=== PATIENT | female | born 1950 | race Caucasian/White ===

== ENCOUNTER → 2017-05-07 | Outpatient (CLI) | payer MEDICARE, OTHER ==
[~2017-05-07] MED LIST: ASCO-262 PO; CALC-80 PO; CYCL1DRO OP; DICL1TAB PO; DOXY50CA2 PO; FLAX340P PO; FLUO40CA PO; GINK60CA13 PO; IBAN150T5 PO; LVT.112T PO; MULT-608 PO; OMEG1CAP40 PO; OMEP20TA2 PO; ROSU10TA12 PO; VITA1CAP55 PO
--- NOTE | 2017-05-07 12:58 | Diagnostic Imaging Report ---
INDICATION: Cough and back pain. TIME OF EXAM: 12:56 PM No prior studies are available for comparison. FINDINGS: The heart size is normal. The pulmonary vascularity is unremarkable. The lungs are clear. No infiltrate, effusion or pneumothorax is detected. IMPRESSION: No acute cardiopulmonary process is detected. Dictated by: Dictated on workstation # [id number]
== END ==
LOC: RAD 12:08
PROVIDERS: ATTEND Nurse Practitioner Family
DX: J40 Bronchitis, not specified as acute or chronic (principal); M54.9 Dorsalgia, unspecified
CPT/HCPCS: 71046

== ENCOUNTER → 2017-05-09 | Outpatient (CLI) | payer MEDICARE, OTHER ==
[~2017-05-09] MED LIST changes: +RT-ALBUTEROL SULF 2.5 MG/3 ML PRE-MIX VIAL INH ONE
== END ==
LOC: RT 12:43
PROVIDERS: ATTEND Nurse Practitioner Family
DX: J30.9 Allergic rhinitis, unspecified (principal); G47.10 Hypersomnia, unspecified; G47.33 Obstructive sleep apnea (adult) (pediatric); R06.83 Snoring
CPT/HCPCS: 94060; 94726; 94729

== ENCOUNTER 2019-02-23 05:34 | Outpatient (CLI) | payer MEDICARE, OTHER ==
[~2019-02-23] VITALS: Ht 157.5 cm; Wt 68.2 kg
[~2019-02-23 05:34] MED LIST changes: +ASCO100099 PO; +BACI1CAP6 PO; +BUDE180A IH; +CALC-904 PO; +CHOL400C9 PO; +CINN500C2 PO; +FEXO-46 PO; +FLUO40CA12 PO; +FLUT9.9S NS; +GLUC-116 PO; +LEVO112T55 PO; +MELO15TA39 PO; +METF-397 PO; +MONT10TA24 PO; +MULT1TAB69 PO; +OMEP40CA27 PO; +POTA99TA21 PO; +RT-ALBUINH IH; -RT-ALBUTEROL SULF 2.5 MG/3 ML PRE-MIX VIAL INH ONE; +TURM538C PO; +UBID1CAP53 PO
[2019-02-23] MEDS ORDERED: CELE100C PO (10:20)
[2019-02-23] MEDS ORDERED: CHOL500044 PO (10:20)
[2019-02-23] MEDS ORDERED: CHRO400T10 PO (10:20)
== END 2019-02-23 11:30 | disposition home or self-care (01) ==
LOC: PREOP 05:34
PROVIDERS: ATTEND Specialist
DX: Z01.818 Encounter for other preprocedural examination (principal)

== ENCOUNTER 2019-02-26 06:33 | Day surgery (SDC) | payer MEDICARE, OTHER ==
[~2019-02-26] VITALS: Ht 157 cm; Wt 68.2 kg
[~2019-02-26 06:33] MED LIST changes: +CELE100C PO; +CHOL500044 PO; +CHRO400T10 PO
[2019-02-26 06:35] VITALS: BP 125/70
[2019-02-26] MEDS ORDERED: TETRACAINE 0.5% OPHTH SOLN 4 ML BTL (SINGLE DOSE ONLY) OU PRN (06:45)
[2019-02-26] MEDS ORDERED: TROPICAMIDE 1% OPH SOLN (MYDRIACYL) 15 ML BTL OU PRN (06:45)
[2019-02-26] MEDS ORDERED: PHENYLEPHRINE 10% OPHTH (NEO-SYN) 5 ML BTL OU PRN (06:45)
[2019-02-26 07:15] VITALS: BP 125/70
[2019-02-26 07:24] VITALS: BP 125/70
--- NOTE | 2019-02-26 08:17 | Ophthalmology Operative Report ---
YAG Capsulotomy PREOPERATIVE DIAGNOSIS: Secondary Cataract Right Eye POSTOPERATIVE DIAGNOSIS: Secondary Cataract Right Eye PROCEDURE: YAG Capsulotomy, right eye SURGEON: Arian Vela ANESTHESIA: Topical anesthesia COMPLICATIONS: None ESTIMATED BLOOD LOSS: Minimal DESCRIPTION OF PROCEDURE: After proper informed consent was obtained, the patient's, a 68 female, right eye received one drop of Tropicamide and one drop of Tetracaine. The patient was then placed at the YAG laser and using a power of [ 3.0] millijoules and [15 ] bursts were used to fashion a central capsulotomy. The patient tolerated the procedure well without complications. ARIAN VELA MD Feb 26, 2019 08:17
--- NOTE | 2019-02-26 08:17 | Ophthalmologist Pre-Op Note ---
Pre-Operative Progress Note H&P Reviewed The H&P was reviewed, patient examined and no changes noted. Date H&P Reviewed: Feb 26, 2019 Time H&P Reviewed: 07:24 Pre-Op Dx Secondary Cataract, Right Eye EZE VELA MD Feb 26, 2019 08:17
== END 2019-02-26 07:15 | disposition home or self-care (01) ==
LOC: SDC 06:33
PROVIDERS: ATTEND Specialist
DX: H26.491 Other secondary cataract, right eye (principal); R73.03 Prediabetes; J45.909 Unspecified asthma, uncomplicated; M19.90 Unspecified osteoarthritis, unspecified site; Z79.899 Other long term (current) drug therapy; Z80.7 Family history of other malignant neoplasms of lymphoid, hematopoietic and related tissues

== ENCOUNTER 2019-10-05 13:06 | Outpatient (RCR) | payer MEDICARE, OTHER ==
[~2019-10-05 13:06] MED LIST changes: -MONT10TA24 PO; +MONT10TA26 PO; +MULT-567 PO; -MULT1TAB69 PO
== END 2019-10-11 | disposition home or self-care (01) ==
PROVIDERS: ATTEND Orthopaedic Surgery
DX: Z47.1 Aftercare following joint replacement surgery (principal); M25.812 Other specified joint disorders, left shoulder; K21.9 Gastro-esophageal reflux disease without esophagitis; M81.0 Age-related osteoporosis without current pathological fracture; J45.909 Unspecified asthma, uncomplicated; E11.9 Type 2 diabetes mellitus without complications; Z87.81 Personal history of (healed) traumatic fracture; Z96.612 Presence of left artificial shoulder joint

== ENCOUNTER 2020-06-12 05:39 | Outpatient (CLI) | payer MEDICARE ==
[~2020-06-12] VITALS: Ht 160 cm; Wt 68.2 kg
[~2020-06-12 05:39] MED LIST changes: -MONT10TA26 PO; +MONT10TA32 PO
[2020-06-12] MEDS ORDERED: BUDE90AE2 IH (11:12)
[2020-06-12] MEDS ORDERED: CHOL500044 PO (11:12)
== END 2020-06-12 11:15 | disposition home or self-care (01) ==
LOC: PREOP 05:39
PROVIDERS: ATTEND Specialist
DX: Z01.818 Encounter for other preprocedural examination (principal)

== ENCOUNTER 2020-06-16 06:56 | Day surgery (SDC) | payer MEDICARE, OTHER ==
[~2020-06-16] VITALS: Ht 160 cm; Wt 68.2 kg
[~2020-06-16 06:56] MED LIST changes: +BUDE90AE2 IH
[2020-06-16] MEDS: TETRACAINE 0.5% OPHTH SOLN 4 ML BTL (SINGLE DOSE ONLY) OU PRN ×4 (07:12→07:28)
[2020-06-16] MEDS ORDERED: MOXIFLOXACIN OPHTH SOLN 5 MG/ML 0.3 ML SYRINGE OP ONE (07:15)
[2020-06-16] MEDS ORDERED: POVIDONE (BETADINE) OPHTH SOLN 5% 30 ML OP ONE (07:15)
[2020-06-16] MEDS ORDERED: LIDOCAINE PF 1% 2 ML VIAL IR PRN (07:15)
[2020-06-16] MEDS ORDERED: TIMOLOL MALEATE 0.5% 5 ML (TIMOPTIC) BTL OU PRN (07:15)
[2020-06-16] MEDS: PHENYLEPHRINE 10% OPHTH (NEO-SYN) 5 ML BTL OU SCH ×3 (07:18→07:29)
[2020-06-16] MEDS: TROPICAMIDE 1% OPH SOLN (MYDRIACYL) 15 ML BTL OP SCH ×3 (07:18→07:29)
[2020-06-16 07:20] VITALS: BP 133/72
[2020-06-16] MEDS ORDERED: MIDAZOLAM 2 MG/2 ML (VERSED) VIAL ONE ×2 (07:42→08:07)
--- NOTE | 2020-06-16 08:04 | Ophthalmologist Pre-Op Note ---
Pre-Operative Progress Note H&P Reviewed The H&P was reviewed, patient examined and no changes noted. Date H&P Reviewed: June 16, 2020 Time H&P Reviewed: 08:04 Pre-Op Dx Cataract, Left Eye EZE VELA MD June 16, 2020 08:04
[2020-06-16] MEDS ORDERED: VASOPRESSIN INJECTION 20 UNIT/ML VIAL ONE ×2 (08:11→08:24)
--- NOTE | 2020-06-16 08:28 | Ophthalmology Operative Report ---
Cataract removal/placement IOL PREOPERATIVE DIAGNOSIS: Cataract Left Eye POSTOPERATIVE DIAGNOSIS: Cataract Left Eye PROCEDURE: Cataract removal and placement of posterior chamber implant, left eye SURGEON: Arian Vela ANESTHESIA: Topical with sedation COMPLICATIONS: None ESTIMATED BLOOD LOSS: Minimal DESCRIPTION OF PROCEDURE: After proper informed consent was obtained, the patient, a 69 female, was taken to the Operating Room and the left eye was anesthetized with tetracaine. The left eye was then prepped and draped in the usual manner. A wire lid speculum was placed. A paracentesis was made at the left hand position. Preservative free lidocaine was injected into the anterior chamber followed by viscoelastic. A clear corneal incision was made in the temporal position. A capsulorrhexis was preformed and the central nuclear and cortical material were removed. The posterior capsule was polished and an Jared 21.5 [id number] was placed into the capsular bag. The residual viscoelastic was aspirated and balanced saline solution was injected into the anterior chamber. Moxifloxacin was injected into the anterior chamber. The wound was checked and found to be water tight. The patient tolerated the procedure well without complications. ARIAN VELA MD June 16, 2020 08:27
[2020-06-16] MEDS ORDERED: acetaZOLAMIDE ER 500 MG CAP (DIAMOX SEQUELS) PO ONE (08:30)
[2020-06-16 08:39] VITALS: BP 124/69
--- NOTE | 2020-06-16 10:23 | Anesthesia-General Post-Op ---
MAC Patient Condition Mental Status/LOC: Same as Preop Cardiovascular: Satisfactory Nausea/Vomiting: Absent Respiratory: Satisfactory Pain: Controlled Complications: Absent Post Op Complications Complications None Follow Up Care/Instructions Patient Instructions None needed. Anesthesiology Discharge Order Discharge Order Patient is doing well, no complaints, stable vital signs, no apparent adverse anesthesia problems. No complications reported per nursing. CHRISTINE MORLEY CRNA June 16, 2020 10:23
== END 2020-06-16 08:35 | disposition home or self-care (01) ==
LOC: SDC 06:56
PROVIDERS: ATTEND Specialist
DX: H25.12 Age-related nuclear cataract, left eye (principal); J45.909 Unspecified asthma, uncomplicated; K21.9 Gastro-esophageal reflux disease without esophagitis; R73.03 Prediabetes; Z79.51 Long term (current) use of inhaled steroids; Z79.84 Long term (current) use of oral hypoglycemic drugs; Z79.899 Other long term (current) drug therapy; Z80.7 Family history of other malignant neoplasms of lymphoid, hematopoietic and related tissues; Z83.3 Family history of diabetes mellitus; Z96.653 Presence of artificial knee joint, bilateral; Z98.890 Other specified postprocedural states
CPT/HCPCS: 66984; V2632

== ENCOUNTER → 2020-12-15 | Outpatient (CLI) | payer MEDICARE ==
[~2020-12-15] MED LIST changes: -OMEP40CA27 PO; +OMEP40CA6 PO
== END ==
LOC: CARD 11:00
PROVIDERS: ATTEND Family Medicine
DX: R01.1 Cardiac murmur, unspecified (principal)
CPT/HCPCS: 93306